=== PATIENT | female | born 1975 | race Caucasian/White ===

== ENCOUNTER 2017-01-07 19:56 | Emergency (ER) | payer MEDICAID ==
[2017-01-07] MEDS ORDERED: AMOX/CLAV 875 MG/125 MG TABLET PO STA (20:36)
[2017-01-07] MEDS ORDERED: DEXAMETHASONE 10 MG/ML VIAL PO STA (20:36)
[2017-01-07] MEDS ORDERED: AMOX/CLAV 875 MG/125 MG TABLET PO ONE (20:48)
[2017-01-07] MEDS ORDERED: DEXAMETHASONE 10 MG/ML VIAL ONE (20:48)
[2017-01-07] MEDS ORDERED: CHERRY SYRUP 10 ML UDC PO ONE (20:48)
[2017-01-07 21:13] LABS: RAPID STREP SCREEN REAGENT QC YELLOW (YELLOW)
--- NOTE | 2017-01-07 21:23 | ED Physician Documentation ---
PD HPI HEENT - Stated complaint Stated Complaint: THROAT PX - Chief complaint Chief Complaint: Heent - History obtained from History obtained from: Patient, Family - History of Present Illness Timing - onset: How many days ago (2) Timing - details: Gradual onset, Still present Location: Throat Associated symptoms: Swollen nodes. No: Fever, Congestion Similar symptoms before: Has not had sx before Recently seen: Not recently seen - Additional information Additional information: Patient is a 42 year old female with no significant past medical history who is presenting to the emergency department for sore throat and ear pain. patient states that she has pain and fullness in the right side of her throat with pain radiating up to her ears. Review of Systems Constitutional: denies: Fever, Chills Eyes: denies: Decreased vision, Photophobia Ears: reports: Ear pain. denies: Drainage/discharge Nose: denies: Rhinorrhea / runny nose, Congestion Throat: reports: Sore throat, Swollen tonsils Cardiac: denies: Chest pain / pressure GI: denies: Nausea, Vomiting : denies: Dysuria, Frequency, Hesitancy Skin: denies: Rash, Lesions Musculoskeletal: denies: Neck pain, Back pain Immunocompromised: denies: Immunocompromised PD PAST MEDICAL HISTORY - Past Medical History Endocrine/Autoimmune: Other Other Past Medical History: Has tumor on thyroid since 19 y/o. - Past Surgical History Past Surgical History: No - Present Medications Home Medications: Ambulatory Orders Medication Instructions Recorded Confirmed Amox/Clav 875/125 [Augmentin] 1 each PO Q12H #14 tablet 01/07/17 - Allergies Allergies/Adverse Reactions: Allergies Allergy/AdvReac Type Severity Reaction Status Date / Time Latex, Natural Rubber Allergy Edema Verified 01/07/17 20:13 - Social History Does the pt smoke?: Yes Does the pt drink ETOH?: Yes Does the pt have substance abuse?: No - Immunizations Immunizations are current?: Yes - POLST Patient has POLST: No PD ED PE NORMAL - Vitals Vital signs reviewed: Yes - General General: Alert and oriented X 3, No acute distress, Well developed/nourished - HEENT HEENT: Atraumatic, PERRL, Moist mucous membranes - Neck Neck: Supple, no meningeal sign, No adenopathy - Cardiac Cardiac: RRR, No murmur - Respiratory Respiratory: No respiratory distress - Abdomen Abdomen: Normal bowel sounds, Non tender, Non distended - Derm Derm: Normal color, Warm and dry - Extremities Extremities: No deformity, No edema - Neuro Neuro: No motor deficit, No sensory deficit, Normal speech - Psych Psych: Normal mood, Normal affect PD ED PE EXPANDED - HEENT HEENT: L TM dull, Pharyngeal erythema, Swollen tonsils (swollen tonsil, worse on the right, no drainable fluid collection at this time. ) Results - Vitals Vitals: Vital Signs - 24 hr 01/07/17 01/07/17 20:10 21:35 Temperature 37.2 C Heart Rate 71 72 Respiratory 16 16 Rate Blood Pressure 144/91 H 152/87 H O2 Saturation 97 97 Oxygen O2 Source Room air - Labs Labs: Laboratory Tests 01/07/17 20:40 Group A Strep Rapid Negative PD MEDICAL DECISION MAKING - ED course Complexity details: reviewed old records, reviewed results, re-evaluated patient , considered differential, d/w patient, d/w family ED course: Patient was seen and examined at bedside. Rapid strep was performed. there was a very small collection in right posterior pharynx only a few milimeters. the risk benefit is not in favor at any attempt of aspiration. patient's was shown the region and what to monitor for. patient was treated with decadron and augment. Patient and were given detailed discharge and return instructions. Patient required no further work up and was stable for discharge with outpatient follow up. Departure - Departure Disposition: 01 Home, Self Care Clinical Impression: Pharyngitis Condition: Good Instructions: ED Strep Pharyngitis Poss Follow-Up: primary,care provider [Other] - As Needed [facility] [Provider Group] Prescriptions: Amox/Clav 875/125 [Augmentin] 1 each PO Q12H #14 tablet Comments: Your rapid strep test was negative but there might be a developing fluid collection in the back of your throat on the right side. there is no drainable abscess at this time but you will need to monitor the area. If the area gets larger you can call the ent group. follow up with your pmd, or return to the emergency department. You were started on antibiotics tonight and will need to take it twice a day for the next week. You can return to the emergency departemtn at any time for new, worsening or uncontrollable symptoms. Discharge Date/Time: 01/07/17 21:38
[2017-01-07 21:36] VITALS: BP 152/87
== END 2017-01-07 21:38 | disposition home or self-care (01) ==
LOC: ED 19:56
DX: J02.9 Acute pharyngitis, unspecified (principal)
CPT/HCPCS: 87070; 87430; 99283; A9270

== ENCOUNTER 2017-06-29 22:37 | Emergency (ER) | payer MEDICAID ==
[2017-06-29 22:42] VITALS: BP 149/90
[2017-06-29] MEDS ORDERED: ERYTHROMYCIN OPHTH OINT 1 GM TUBE ONE (23:29)
--- NOTE | 2017-06-29 23:30 | ED Physician Documentation ---
PD HPI OPHTHO - Stated complaint Stated Complaint: EYE SWELLING - Chief complaint Chief Complaint: Heent - History obtained from History obtained from: Patient, Family (spouse) - History of Present Illness Timing - onset: How many hours ago Location: Left Associated symptoms: Redness, Swelling, Tearing Similar symptoms before: Has not had sx before - Additional information Additional information: The patient is a 42-year-old female who presents with swelling and irritation of her left eye. Her symptoms started about 2 hours prior to arrival. She reports tearing, and states that it "qiuros." She denies any specific injury, but was refinishing a table today. She thinks she may have gotten sawdust in her eye, or she may have possibly rubbed her eye, exposing it to the refinishing chemical. She denies any change in her visual acuity. She does not wear glasses or corrective lenses. She denies history of similar symptoms in the past. Review of Systems Constitutional: denies: Fever Eyes: reports: Irritation. denies: Loss of vision Ears: denies: Ear pain Nose: denies: Congestion Throat: denies: Sore throat GI: denies: Nausea, Vomiting Neurologic: denies: Headache PD PAST MEDICAL HISTORY - Past Medical History Cardiovascular: None Respiratory: None Endocrine/Autoimmune: Other - Past Surgical History Past Surgical History: No - Allergies Allergies/Adverse Reactions: Allergies Allergy/AdvReac Type Severity Reaction Status Date / Time Latex, Natural Rubber Allergy Edema Verified 01/07/17 20:13 - Social History Does the pt smoke?: Yes Smoking Status: Current every day smoker Does the pt drink ETOH?: Yes Does the pt have substance abuse?: No - Immunizations Immunizations are current?: Yes - POLST Patient has POLST: No PD ED PE NORMAL - Vitals Vital signs reviewed: Yes (initially hypertensive.) - General General: Alert and oriented X 3, Well developed/nourished - HEENT HEENT: Atraumatic, PERRL, EOMI, Other (There is left conjunctival injection, with slight edema on the lateral aspect of the sclera. Pupils are equal round reactive to light extraocular movements intact. Visual acuity is intact. Fluorescein stain and blue light exam of the left eye reveals no foreign body or fluorescein uptake. The upper lid was everted and no foreign body detected.) - Neck Neck: No adenopathy - Respiratory Respiratory: No respiratory distress - Neuro Neuro: Alert and oriented X 3, Normal speech Results - Vitals Vitals: Oxygen O2 Source Room air PD MEDICAL DECISION MAKING - ED course Complexity details: considered differential, d/w patient, d/w family ED course: The patient's presentation is most consistent with chemical conjunctivitis of the left eye. There is no evidence of ocular abrasion or foreign body. Treatment in the emergency department included administration of erythromycin ophthalmic ointment. The remainder of the 1 g tube was dispensed. I discussed with her and her the expected course of injury, treatment and outpatient follow-up, as well as potentially worrisome signs or symptoms that should prompt reevaluation in the emergency department. Departure - Departure Disposition: 01 Home, Self Care Clinical Impression: Conjunctivitis Qualifiers: Conjunctivitis type: acute Acute conjunctivitis type: unspecified Laterality: left Qualified Code(s): H10.32 - Unspecified acute conjunctivitis, left eye Condition: Stable Instructions: ED Conjunctivitis Nonspecific Follow-Up: Arleth Ba ARNP [Primary Care Provider] - Comments: Apply erythromycin ophthalmic ointment 4 times daily for 2 days. Follow up with your primary physician, or return to the emergency department if you develop increasing redness, swelling, or pain of your eye, or if not improving within 48 hours. Discharge Date/Time: 06/29/17 23:34
== END 2017-06-29 23:34 | disposition home or self-care (01) ==
LOC: ED 22:37
DX: H10.32 Unspecified acute conjunctivitis, left eye (principal)
CPT/HCPCS: 99282; 99283; J3490

== ENCOUNTER 2017-10-21 16:58 | Emergency (ER) | payer MEDICAID ==
[2017-10-21 17:38] LABS: BASOPHILS % (AUTO) 0.5 %; EOSINOPHILS # (AUTO) 0.1 10^3/uL (0.0-0.7); EOSINOPHILS % (AUTO) 1.1 %; HGB - HEMOGLOBIN 14.3 g/dL (12.0-16.0); LYMPHOCYTES # (AUTO) 1.5 10^3/uL (1.5-3.5); LYMPHOCYTES % (AUTO) 20.5 %; MEAN CORPUSCULAR HEMOGLOBIN 31.5 pg (27.0-31.0); MEAN CORPUSCULAR HGB CONC 34.5 g/dL (32.0-36.0); MEAN CORPUSCULAR VOLUME 91.4 fL (81.0-99.0); MEAN PLATELET VOLUME 6.3 fL (7.9-10.8); MONOCYTES # (AUTO) 0.7 10^3/uL (0.0-1.0); MONOCYTES % (AUTO) 9.5 %; NEUTROPHILS % (AUTO) 68.4 %; PLT - PLATELET COUNT 295 10^3/uL (130-450); RED BLOOD COUNT 4.53 10^6/uL (4.20-5.40); RED CELL DISTRIBUTION WIDTH 12.9 % (12.0-15.0); WHITE BLOOD COUNT 7.3 x10^3/uL (4.8-10.8)
[2017-10-21 17:47] LABS: ALBUMIN 3.9 g/dL (3.2-5.5); ALBUMIN/GLOBULIN RATIO 1.4 (1.0-2.2); BILIRUBIN,TOTAL 0.4 mg/dL (0.2-1.0); CREATININE 0.6 mg/dL (0.4-1.0); TOTAL PROTEIN 6.7 g/dL (6.7-8.2)
--- NOTE | 2017-10-21 18:10 | ED Physician Documentation ---
PD HPI ABD PAIN - Stated complaint Stated Complaint: UPPER ABD SWELLING/PX - Chief complaint Chief Complaint: Abd Pain - History obtained from History obtained from: Patient - History of Present Illness Timing - onset: How many weeks ago (1) Timing - duration: Weeks (1) Timing - details: Abrupt onset, Still present, Waxing and waning Quality: Cramping, Aching, Fullness/distended Location: RUQ, Epigastric Radiation: No: Lower back, Upper back Improved by: Laying still. No: Eating Worsened by: Eating, Palpation. No: Moving, Breathing Associated symptoms: Nausea. No: Fever, Vomiting, Diarrhea, Melena, Chest pain Similar symptoms before: Has not had sx before Recently seen: Not recently seen Review of Systems Constitutional: denies: Fever Nose: denies: Rhinorrhea / runny nose, Congestion Throat: denies: Sore throat Cardiac: denies: Chest pain / pressure, Palpitations Respiratory: denies: Dyspnea, Cough GI: reports: Abdominal Pain, Abdominal Swelling, Nausea. denies: Constipation, Diarrhea : denies: Dysuria, Frequency, Discharge Skin: denies: Rash, Lesions, Abrasion (s) Musculoskeletal: denies: Neck pain, Back pain, Extremity swelling PD PAST MEDICAL HISTORY - Past Medical History Past Medical History: No Cardiovascular: None Respiratory: None Endocrine/Autoimmune: Other - Past Surgical History Past Surgical History: No - Present Medications Home Medications: Ambulatory Orders Medication Instructions Recorded Confirmed Ondansetron Odt [Zofran] 4 mg TL Q6H PRN #15 tablet 10/21/17 Pantoprazole Sodium 20 mg PO DAILY #30 tablet. 10/21/17 Sucralfate 1 gm PO QID #40 tablet 10/21/17 - Allergies Allergies/Adverse Reactions: Allergies Allergy/AdvReac Type Severity Reaction Status Date / Time Latex, Natural Rubber Allergy Edema Verified 10/21/17 17:14 - Social History Does the pt smoke?: Yes Smoking Status: Current every day smoker Does the pt drink ETOH?: Yes Does the pt have substance abuse?: No - Family History Family history: reports: Non contributory. denies: Aortic aneursym, Aortic dissection - Immunizations Immunizations are current?: Yes - POLST Patient has POLST: No PD ED PE NORMAL - Vitals Vital signs reviewed: Yes - General General: Alert and oriented X 3, Well developed/nourished, Other (seems in some pain) - HEENT HEENT: PERRL (nonicteric), Ears normal, Moist mucous membranes, Pharynx benign - Neck Neck: Supple, no meningeal sign, No adenopathy - Cardiac Cardiac: RRR, No murmur - Respiratory Respiratory: Clear bilaterally - Abdomen Abdomen: Normal bowel sounds, Soft, Non distended, No organomegaly, Other ( tenderness epigastric and RUQ area. Negative Ogden sign. No percussion nor rebound tenderness. ) - Female Female : Deferred - Rectal Rectal: Deferred - Back Back: No CVA TTP - Derm Derm: Normal color, Warm and dry, No rash - Extremities Extremities: No tenderness to palpate, Normal ROM s pain, No edema, No calf tenderness / cord - Neuro Neuro: Alert and oriented X 3, No motor deficit, Normal speech Results - Vitals Vitals: Oxygen O2 Source Room air - Labs Labs: Laboratory Tests 10/21/17 10/21/17 10/21/17 17:28 17:28 19:10 WBC 7.3 RBC 4.53 Hgb 14.3 Hct 41.4 MCV 91.4 MCH 31.5 H MCHC 34.5 RDW 12.9 Plt Count 295 MPV 6.3 L Neut # 5.0 Lymph # 1.5 Mckinley # 0.7 Eos # 0.1 Baso # 0.0 Absolute Nucleated RBC 0.00 Nucleated RBC % 0.0 Sodium 137 Potassium 3.9 Chloride 103 Carbon Dioxide 25 Anion Gap 9.0 BUN 8 Creatinine 0.6 Estimated GFR (MDRD) 110 Glucose 87 Calcium 9.0 Total Bilirubin 0.4 AST 21 ALT 41 Alkaline Phosphatase 52 Total Protein 6.7 Albumin 3.9 Globulin 2.8 Albumin/Globulin Ratio 1.4 Lipase 14 L Urine Color YELLOW Urine Clarity CLEAR Urine pH 6.0 Ur Specific [place] <=1.005 Urine Protein NEGATIVE Urine Glucose (UA) NEGATIVE Urine Ketones TRACE Urine Occult Blood NEGATIVE Urine Nitrite NEGATIVE Urine Bilirubin NEGATIVE Urine Urobilinogen 0.2 (NORMAL) Ur Leukocyte Esterase NEGATIVE Ur Microscopic Review NOT INDICATED Urine Culture Comments NOT INDICATED Urine HCG, Qual NEGATIVE - Rads (name of study) upper abd U/S Radiology: Prelim report reviewed (normal gallbladder and duct) PD MEDICAL DECISION MAKING - ED course Complexity details: re-evaluated patient (only minimally improved with GI cocktail. GB seems okay by US, lipase is normal. Pain directly correlates with eating. Presume stomach pain such as gastritis or ulcer.), considered differential, d/w patient Departure - Departure Disposition: 01 Home, Self Care Clinical Impression: Epigastric abdominal pain Gastritis Qualifiers: Gastritis type: other gastritis Chronicity: acute Gastritis bleeding: without bleeding Qualified Code(s): K29.00 - Acute gastritis without bleeding Condition: Stable Record reviewed to determine appropriate education?: Yes Instructions: ED PUD Vs Gastritis Prescriptions: Ondansetron Odt [Zofran] 4 mg TL Q6H PRN #15 tablet PRN Reason: Nausea / Vomiting Pantoprazole Sodium 20 mg PO DAILY #30 tablet. Sucralfate 1 gm PO QID #40 tablet Comments: Your pancreas liver and gallbladder look okay. Presume this is an irritation of the stomach, gastritis or ulcer. Use pantoprazole daily for a month to reduce stomach acids. This takes a few days for her to become really well effective to allow healing. So meanwhile also cut the stomach several times a day with sucralfate. [place] food. Avoid NSAIDs and aspirin. Use Tylenol and/ or tramadol if needed for pains. Recheck if not improving over the next several days to week. Discharge Date/Time: 10/21/17 21:33
[2017-10-21] MEDS ORDERED: MAG HYDROX/AL HYDROX/SIMETH 30 ML UDC PO STA (18:24)
[2017-10-21] MEDS ORDERED: LIDOCAINE VISCOUS 2% 15 ML UDC MM STA (18:24)
[2017-10-21] MEDS ORDERED: FAMOTIDINE 20 MG TABLET PO STA (18:24)
[2017-10-21 19:17] LABS: BILIRUBIN,URINE NEGATIVE (NEGATIVE); GLUCOSE, URINE (UA) NEGATIVE (NEGATIVE); KETONES,URINE (UA) TRACE mg/dL (NEGATIVE); LEUKOCYTE ESTERASE, URINE NEGATIVE (NEGATIVE); NITRITE,URINE NEGATIVE (NEGATIVE); OCCULT BLOOD,URINE NEGATIVE (NEGATIVE); PROTEIN,URINE NEGATIVE (NEGATIVE); UROBILINOGEN,URINE 0.2 (NORMAL) E.U./dL (NORMAL)
[2017-10-21 19:18] LABS: CLARITY,URINE CLEAR (CLEAR)
[2017-10-21 19:19] LABS: HCG UR QUAL NEGATIVE
--- NOTE | 2017-10-21 20:06 | Ultrasound Preliminary Report ---
Exam: US ABDOMEN LIMITED IMPRESSION: Normal. No cholelithiasis or cholecystitis. [facility] SITE ID: [id number]
[2017-10-21] MEDS ORDERED: SUCRALFATE 1 GM/10 ML UDC PO STA (21:09)
[2017-10-21 21:26] VITALS: BP 148/99
--- NOTE | 2017-10-21 21:45 | Ultrasound Report ---
EXAM: ABDOMEN ULTRASOUND LIMITED, RIGHT UPPER QUADRANT EXAM DATE: 10/21/2017 07:38 PM. CLINICAL HISTORY: Upper abdominal pain for several days, worse after eating. COMPARISON: None. TECHNIQUE: Real-time scanning was performed with static images obtained. FINDINGS: Liver: Normal in size and echotexture. 14.6 cm. Main portal vein flow: Hepatopetal. Gallbladder: Normal. No stones, wall thickening, or sonographic Self's sign. 2 mm wall thickness. Biliary System: CBD measures 4 mm. No intrahepatic or extrahepatic ductal dilatation. Other: Right kidney measures 9.5 cm in length. No hydronephrosis. Distal pancreas is not well seen. R emaining pancreas unremarkable. IMPRESSION: Normal. No cholelithiasis or cholecystitis. [facility] Referring Provider Line: [phone] SITE ID: [id number]
== END 2017-10-21 21:33 | disposition home or self-care (01) ==
LOC: ED 16:58
DX: R10.13 Epigastric pain (principal); K29.00 Acute gastritis without bleeding; F17.200 Nicotine dependence, unspecified, uncomplicated
CPT/HCPCS: 36415; 76705; 80053; 81003; 81025; 83690; 85025; 99283; A9270; 81001; 87086

== ENCOUNTER 2019-09-01 09:41 | Emergency (ER) | payer MEDICAID ==
--- NOTE | 2019-09-01 11:46 | ED Physician Documentation ---
History of Present Illness - Stated complaint Stated Complaint: FLU LIKE SYMP - Chief complaint Chief Complaint: Fever - History obtained from History obtained from: Patient - History of Present Illness Timing: Other (44-year-old woman with multiple autoimmune diseases has been sick for 5 days with fevers, chills, cough productive of green sputum. Body aches and shortness of breath. Maximum temperature was 101.5 last night. She is on immunosuppressive agents.) Review of Systems Constitutional: reports: Fever, Chills, Myalgias, Fatigue Nose: reports: Epistaxis. 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, Sjorens Syndrome, Anxiety, ADD - Past Surgical History Past Surgical History: No - Present Medications Home Medications: Ambulatory Orders Medication Instructions Recorded Confirmed Ondansetron Odt [Zofran] 4 mg TL Q6H PRN #15 tablet 10/21/17 09/01/19 Buspirone HCl 15 mg PO BID 09/01/19 09/01/19 DULoxetine [Cymbalta] 60 mg PO DAILY 09/01/19 09/01/19 Dextroamphetamine/Amphetamine 1 tab PO DAILY 09/01/19 09/01/19 [Dextroamp-Amphetamin 10 mg Tab] Diclofenac Sodium [Diclo Gel] 1 each TP PRN PRN 09/01/19 09/01/19 Lansoprazole [Prevacid] 30 mg PO DAILY 09/01/19 09/01/19 Levothyroxine [Synthroid] 125 mcg PO QDAC 09/01/19 09/01/19 Tizanidine HCl 2 mg PO PRN PRN 09/01/19 09/01/19 azaTHIOprine [Azathioprine] 50 mg PO DAILY 09/01/19 09/01/19 metroNIDAZOLE 0.75% GEL [(None)] 45 applic TOP BID 09/01/19 09/01/19 - Allergies Allergies/Adverse Reactions: Allergies Allergy/AdvReac Type Severity Reaction Status Date / Time Latex, Natural Rubber Allergy Edema Verified 09/01/19 09:50 - Social History Does the pt smoke?: Yes Smoking Status: Current some day smoker Does the pt drink ETOH?: Yes ETOH Use: Wine Does the pt have substance abuse?: No - Immunizations Immunizations are current?: Yes - POLST Patient has POLST: No PD ED PE NORMAL - Vitals Vital signs reviewed: Yes - General General: Alert and oriented X 3, No acute distress - HEENT HEENT: PERRL, EOMI - Neck Neck: Supple, no meningeal sign, No bony TTP - Cardiac Cardiac: RRR, No murmur - Respiratory Respiratory: No respiratory distress, Other (Focally wheezy at the left base without other focal findings, nonlabored) - Abdomen Abdomen: Non tender - Derm Derm: No rash - Extremities Extremities: No edema, No calf tenderness / cord Results - Vitals Vitals: Vital Signs - 24 hr 09/01/19 09/01/19 09:47 11:47 Temperature 37.4 C 37.5 C Heart Rate 84 96 Respiratory 14 20 Rate Blood Pressure 153/99 H 147/95 H O2 Saturation 96 94 Oxygen O2 Source Room air - Labs Labs: Laboratory Tests 09/01/19 09:50 Influenza A (Rapid) Negative Influenza B (Rapid) Negative - Rads (name of study) 2v chest Radiology: EMP read contemporaneously (NAD) PD MEDICAL DECISION MAKING - ED course ED course: 44-year-old woman with multiple autoimmune diseases on immunosuppressive's presents with a viral syndrome, some concern for bacterial pulmonary pathology but her chest x-ray is negative. Flu swab negative. Could be a false negative, symptoms are typical, but inconsequential at this point as she is outside of the range of expected efficacy for antivirals. Departure - Departure Disposition: 01 Home, Self Care Clinical Impression: Viral respiratory illness Condition: Good Record reviewed to determine appropriate education?: Yes Instructions: ED Viral Syndrome Comments: Ibuprofen as needed for pain and aches, drink plenty of fluids. Return for new or worsening symptoms. Follow-up with your doctor in 2 to 3 days if not improving.
[2019-09-01 11:48] VITALS: BP 147/95
--- NOTE | 2019-09-01 12:34 | XRAY Report ---
Reason: cough Procedure Date: 09/01/2019 Accession Number: [id number] / [id number] Procedure: XR - Chest 2 View X-Ray CPT Code: 13547 Final Report FULL RESULT: EXAM: CHEST RADIOGRAPHY EXAM DATE: 09/01/2019 12:06 PM. CLINICAL HISTORY: Cough. COMPARISON: None. TECHNIQUE: 2 views. FINDINGS: Lungs/Pleura: No focal opacities evident. No pleural effusion. No pneumothorax. Normal volumes. Mediastinum: Heart and mediastinal contours are unremarkable. Other: Mild degenerative change of the thoracic spine. IMPRESSION: No acute pathology. [facility]
== END 2019-09-01 12:57 | disposition home or self-care (01) ==
LOC: ED 09:41
DX: B34.9 Viral infection, unspecified (principal); J98.9 Respiratory disorder, unspecified; F17.200 Nicotine dependence, unspecified, uncomplicated; L93.0 Discoid lupus erythematosus; M35.00 Sjogren syndrome, unspecified; M06.9 Rheumatoid arthritis, unspecified; Z79.899 Other long term (current) drug therapy
CPT/HCPCS: 71046; 87275; 87276; 99283; 99284

== ENCOUNTER 2020-10-20 12:02 | Outpatient (CLI) | payer MEDICAID ==
[2020-10-20 15:43] LABS: ALBUMIN 4.1 g/dL (3.2-5.5); ALBUMIN/GLOBULIN RATIO 1.6 (1.0-2.2); BILIRUBIN,TOTAL 0.7 mg/dL (0.2-1.0); CALCIUM 8.7 mg/dL (8.5-10.3); CREATININE 0.7 mg/dL (0.4-1.0); POTASSIUM 3.7 mmol/L (3.5-5.0); TOTAL PROTEIN 6.6 g/dL (6.7-8.2)
[2020-10-20 15:45] LABS: BASOPHILS % (AUTO) 0.3 %; EOSINOPHILS % (AUTO) 0.4 %; HCT - HEMATOCRIT 41.9 % (37.0-47.0); HGB - HEMOGLOBIN 14.7 g/dL (12.0-16.0); LYMPHOCYTES # (AUTO) 1.9 10^3/uL (1.5-3.5); LYMPHOCYTES % (AUTO) 21.1 %; MEAN CORPUSCULAR HEMOGLOBIN 32.4 pg (27.0-31.0); MEAN CORPUSCULAR HGB CONC 35.1 g/dL (32.0-36.0); MEAN CORPUSCULAR VOLUME 92.3 fL (81.0-99.0); MONOCYTES # (AUTO) 0.7 10^3/uL (0.0-1.0); MONOCYTES % (AUTO) 7.3 %; NEUTROPHILS # (AUTO) 6.3 10^3/uL (1.5-6.6); NEUTROPHILS % (AUTO) 70.7 %; PLT - PLATELET COUNT 200 10^3/uL (130-450); RED BLOOD COUNT 4.54 10^6/uL (4.20-5.40); RED CELL DISTRIBUTION WIDTH 12.6 % (12.0-15.0); WHITE BLOOD COUNT 8.9 x10^3/uL (4.8-10.8)
[2020-10-23 22:02] LABS: ALBUMIN 3.8 g/dL (3.8-4.8); ALPHA 1 GLOBULIN 0.3 g/dL (0.2-0.3); ALPHA 2 GLOBULIN 0.7 g/dL (0.5-0.9); BETA 1 GLOBULIN 0.4 g/dL (0.4-0.6); BETA 2 GLOBULIN 0.3 g/dL (0.2-0.5); GAMMA GLOBULIN 0.6 g/dL (0.8-1.7)
[2020-10-24 13:32] LABS: COMPLEMENT COMPONENT C3C 103 mg/dL (83-193); COMPLEMENT COMPONENT C4C 16 mg/dL (15-57)
== END 2020-10-20 12:03 | disposition home or self-care (01) ==
LOC: LAB.S 12:02
PROVIDERS: ATTEND Internal Medicine
DX: R68.2 Dry mouth, unspecified (principal); H04.129 Dry eye syndrome of unspecified lacrimal gland; M35.9 Systemic involvement of connective tissue, unspecified; Z79.899 Other long term (current) drug therapy
CPT/HCPCS: 36415; 80053; 84155; 84165; 85025; 85651; 86160

== ENCOUNTER 2020-12-04 12:50 | Outpatient (CLI) | payer MEDICAID ==
[2020-12-04 19:55] LABS: BASOPHILS % (AUTO) 0.2 %; EOSINOPHILS % (AUTO) 0.1 %; HCT - HEMATOCRIT 43.7 % (37.0-47.0); HGB - HEMOGLOBIN 14.7 g/dL (12.0-16.0); LYMPHOCYTES # (AUTO) 1.4 10^3/uL (1.5-3.5); LYMPHOCYTES % (AUTO) 9.7 %; MEAN CORPUSCULAR HEMOGLOBIN 31.9 pg (27.0-31.0); MEAN CORPUSCULAR HGB CONC 33.6 g/dL (32.0-36.0); MEAN CORPUSCULAR VOLUME 94.8 fL (81.0-99.0); MEAN PLATELET VOLUME 10.1 fL (7.9-10.8); MONOCYTES # (AUTO) 0.6 10^3/uL (0.0-1.0); MONOCYTES % (AUTO) 4.2 %; NEUTROPHILS # (AUTO) 12.1 10^3/uL (1.5-6.6); NEUTROPHILS % (AUTO) 85.2 %; PLT - PLATELET COUNT 180 10^3/uL (130-450); RED BLOOD COUNT 4.61 10^6/uL (4.20-5.40); WHITE BLOOD COUNT 14.2 x10^3/uL (4.8-10.8)
[2020-12-04 20:08] LABS: ALBUMIN/GLOBULIN RATIO 1.5 (1.0-2.2); BILIRUBIN,TOTAL 0.7 mg/dL (0.2-1.0); CALCIUM 8.8 mg/dL (8.5-10.3); CREATININE 0.7 mg/dL (0.4-1.0); POTASSIUM 4.2 mmol/L (3.5-5.0); TOTAL PROTEIN 6.6 g/dL (6.7-8.2)
== END 2020-12-04 12:51 | disposition home or self-care (01) ==
LOC: LAB.S 12:50
PROVIDERS: ATTEND Internal Medicine
DX: D80.1 Nonfamilial hypogammaglobulinemia (principal); Z79.899 Other long term (current) drug therapy
CPT/HCPCS: 36415; 80053; 81599; 83883; 85025; 86334

== ENCOUNTER 2021-02-09 09:53 | Outpatient (CLI) | payer MEDICAID ==
[2021-02-09 15:08] LABS: BASOPHILS % (AUTO) 0.4 %; EOSINOPHILS # (AUTO) 0.1 10^3/uL (0.0-0.7); EOSINOPHILS % (AUTO) 1.4 %; HCT - HEMATOCRIT 44.1 % (37.0-47.0); LYMPHOCYTES # (AUTO) 1.7 10^3/uL (1.5-3.5); LYMPHOCYTES % (AUTO) 19.8 %; MEAN CORPUSCULAR HEMOGLOBIN 31.7 pg (27.0-31.0); MEAN CORPUSCULAR VOLUME 93.2 fL (81.0-99.0); MEAN PLATELET VOLUME 10.1 fL (7.9-10.8); MONOCYTES # (AUTO) 0.7 10^3/uL (0.0-1.0); MONOCYTES % (AUTO) 8.5 %; NEUTROPHILS # (AUTO) 5.9 10^3/uL (1.5-6.6); NEUTROPHILS % (AUTO) 69.7 %; PLT - PLATELET COUNT 159 10^3/uL (130-450); RED BLOOD COUNT 4.73 10^6/uL (4.20-5.40); RED CELL DISTRIBUTION WIDTH 12.1 % (12.0-15.0); WHITE BLOOD COUNT 8.4 x10^3/uL (4.8-10.8)
[2021-02-09 15:10] LABS: ALBUMIN 4.1 g/dL (3.2-5.5); ALBUMIN/GLOBULIN RATIO 1.4 (1.0-2.2); BILIRUBIN,TOTAL 0.5 mg/dL (0.2-1.0); CALCIUM 8.9 mg/dL (8.5-10.3); CREATININE 0.7 mg/dL (0.4-1.0); POTASSIUM 4.2 mmol/L (3.5-5.0)
== END 2021-02-09 09:54 | disposition home or self-care (01) ==
LOC: LAB.S 09:53
PROVIDERS: ATTEND Internal Medicine
DX: Z79.899 Other long term (current) drug therapy (principal)
CPT/HCPCS: 36415; 80053; 85025

== ENCOUNTER 2021-03-26 12:22 | Outpatient (CLI) | payer MEDICAID ==
[2021-03-26 15:03] LABS: BASOPHILS % (AUTO) 0.5 %; EOSINOPHILS # (AUTO) 0.1 10^3/uL (0.0-0.7); EOSINOPHILS % (AUTO) 0.7 %; HCT - HEMATOCRIT 42.4 % (37.0-47.0); HGB - HEMOGLOBIN 14.7 g/dL (12.0-16.0); LYMPHOCYTES # (AUTO) 2.1 10^3/uL (1.5-3.5); LYMPHOCYTES % (AUTO) 24.5 %; MEAN CORPUSCULAR HEMOGLOBIN 31.6 pg (27.0-31.0); MEAN CORPUSCULAR HGB CONC 34.7 g/dL (32.0-36.0); MEAN CORPUSCULAR VOLUME 91.2 fL (81.0-99.0); MEAN PLATELET VOLUME 9.7 fL (7.9-10.8); MONOCYTES # (AUTO) 0.6 10^3/uL (0.0-1.0); MONOCYTES % (AUTO) 7.5 %; NEUTROPHILS # (AUTO) 5.6 10^3/uL (1.5-6.6); NEUTROPHILS % (AUTO) 66.4 %; RED BLOOD COUNT 4.65 10^6/uL (4.20-5.40); WHITE BLOOD COUNT 8.4 x10^3/uL (4.8-10.8)
[2021-03-26 15:12] LABS: ALBUMIN 4.1 g/dL (3.2-5.5); ALBUMIN/GLOBULIN RATIO 1.5 (1.0-2.2); BILIRUBIN,TOTAL 0.7 mg/dL (0.2-1.0); CALCIUM 8.7 mg/dL (8.5-10.3); CREATININE 0.7 mg/dL (0.4-1.0); TOTAL PROTEIN 6.8 g/dL (6.7-8.2)
[2021-03-26 16:05] LABS: SLIDE REVIEW? Indicated
[2021-03-26 16:06] LABS: PLATELET ESTIMATE, MANUAL NORMAL (130-450,000) (NORMAL); PLATELET MORPHOLOGY PLATELET CLUMPING (NORMAL)
== END 2021-03-26 12:23 | disposition home or self-care (01) ==
LOC: LAB.S 12:22
PROVIDERS: ATTEND Internal Medicine
DX: Z79.899 Other long term (current) drug therapy (principal)
CPT/HCPCS: 36415; 80053; 85025